=== PATIENT | female | born 1930 | race Caucasian/White ===

== ENCOUNTER 2017-06-17 00:08 | Inpatient (IN) | payer OTHER, MEDICAID ==
[~2017-06-17] VITALS: Ht 162.6 cm; Wt 54.4 kg
[2017-06-17] MEDS ORDERED: CRANBERRY450 M1 PO (00:36)
[2017-06-17] MEDS ORDERED: ARICEPT10 MG PO (00:36)
[2017-06-17] MEDS ORDERED: COLACE100 MG PO (00:37)
[2017-06-17] MEDS ORDERED: FERROUS SULFAT325 M2 PO (00:37)
[2017-06-17] MEDS ORDERED: FOSAMAX70 M1 PO (00:37)
[2017-06-17] MEDS ORDERED: LIPI10 PO (00:38)
[2017-06-17] MEDS ORDERED: LEVOTHYROXIN0.075 M2 PO (00:38)
[2017-06-17] MEDS ORDERED: GLIPIZIDE ER10 M1 PO (00:38)
[2017-06-17] MEDS ORDERED: NOR10 PO (00:39)
[2017-06-17] MEDS ORDERED: MEG40 PO (00:39)
[2017-06-17] MEDS ORDERED: ORAZINC 220220 MG PO (00:39)
[2017-06-17] MEDS ORDERED: DETROL LA4 MG PO (00:39)
[2017-06-17 01:19] LABS: BASOPHIL % 0.1 % (0-2); PLATELET COUNT 203 x10^3mcL (130-400)
[2017-06-17 01:23] LABS: RED CELL DISTRIBUTION WIDTH 16.4 % (11.5-14.5)
[2017-06-17 01:38] LABS: CALCIUM 8.9 mg/dL (8.5-10.1); CARBON DIOXIDE 21.1 mmol/L (21-32); CHLORIDE SERUM 108 mmol/L (98-107); CREATININE SERUM 1.8 mg/dL (0.6-1.0); GLUCOSE SERUM 251 mg/dL (74-106); POTASSIUM SERUM 4.3 mmol/L (3.5-5.1); SODIUM SERUM 139 mmol/L (136-145)
[2017-06-17 01:44] LABS: ALKALINE PHOSPHATASE 97 U/L (46-116); ALT/SGPT 21 U/L (14-59); AST/SGOT 20 U/L (15-37); BILIRUBIN TOTAL 0.41 mg/dL (0.20-1.00); TOTAL PROTEIN, SERUM 7.1 g/dL (6.4-8.2)
[2017-06-17 01:47] LABS: ALBUMIN 2.9 g/dL (3.4-5.0)
[2017-06-17 03:30] LABS: microscopic required? YES; urine erythrocyte NEGATIVE (NEGATIVE)
[2017-06-17 04:33] VITALS: BP 102/42
[2017-06-17 04:34] VITALS: BP 104/42
[2017-06-17 05:08] LABS: MAGNESIUM 2.2 mg/dL (1.8-2.4); PHOSPHOROUS 2.1 mg/dL (2.5-4.9)
[2017-06-17 05:14] LABS: T3 TOTAL 0.31 ng/mL
[2017-06-17 05:15] LABS: FREE T4 1.15 ng/dL (0.76-1.46); FREE THYROXINE INDEX 1.9 ug/dL (1.4-4.5); T4(THYROXINE) 5.1 ug/dL (4.7-13.3)
[2017-06-17 09:31] VITALS: BP 125/68
[2017-06-17 15:55] VITALS: BP 119/67
[2017-06-17 20:37] VITALS: BP 123/62
[2017-06-18 00:30] VITALS: BP 136/76
[2017-06-18 05:59] VITALS: BP 99/58
[2017-06-18 07:34] LABS: PLATELET COUNT 240 x10^3mcL (130-400)
[2017-06-18 07:37] LABS: RED CELL DISTRIBUTION WIDTH 17.3 % (11.5-14.5)
[2017-06-18 07:42] LABS: CALCIUM 8.1 mg/dL (8.5-10.1); CARBON DIOXIDE 17.6 mmol/L (21-32); CHLORIDE SERUM 112 mmol/L (98-107); CREATININE SERUM 1.7 mg/dL (0.6-1.0); GLUCOSE SERUM 275 mg/dL (74-106); PHOSPHOROUS 3.6 mg/dL (2.5-4.9); POTASSIUM SERUM 5.1 mmol/L (3.5-5.1); SODIUM SERUM 144 mmol/L (136-145)
[2017-06-18 09:22] VITALS: BP 102/75
[2017-06-18 10:33] LABS: BAND NEUTROPHIL 5 % (0-10); BASOPHIL 0 % (0-2); MONOCYTE 2 % (0-7); SEGMENTED NEUTROPHILS 89 % (37-75)
[2017-06-18 10:34] LABS: rbc morphology (normal/abnorm) ABNORMAL (NORMAL)
[2017-06-18 10:35] LABS: burr cell (echinocyte) 1+
[2017-06-18 12:44] VITALS: BP 111/57
[2017-06-18 17:48] VITALS: BP 98/57
[2017-06-18 22:07] VITALS: BP 101/55
[2017-06-19 06:20] VITALS: BP 96/48
[2017-06-19 08:46] VITALS: Ht 162.6 cm; Wt 54.4 kg
[2017-06-19 09:54] VITALS: BP 97/38
[2017-06-19 14:10] VITALS: BP 98/43
[2017-06-19 17:34] VITALS: BP 104/41
[2017-06-19 20:41] VITALS: BP 118/35
[2017-06-20 05:26] VITALS: BP 122/40
[2017-06-20 07:35] VITALS: BP 100/27
== END 2017-06-20 09:42 | disposition expired | DRG 177 ==
LOC: ED 00:08 → DU 02:33
PROVIDERS: Emergency Medicine; Family Medicine
PROC: 5A09457 Assistance with Respiratory Ventilation, 24-96 Consecutive Hours, Continuous Positive Airway Pressure (ICD-10-PCS; principal; 2017-06-18)
DX: J69.0 Pneumonitis due to inhalation of food and vomit (principal); E43 Unspecified severe protein-calorie malnutrition; J96.00 Acute respiratory failure, unspecified whether with hypoxia or hypercapnia; N17.0 Acute kidney failure with tubular necrosis; E41 Nutritional marasmus; J44.1 Chronic obstructive pulmonary disease with (acute) exacerbation; Z68.1 Body mass index [BMI] 19.9 or less, adult; I10 Essential (primary) hypertension; E11.9 Type 2 diabetes mellitus without complications; E03.9 Hypothyroidism, unspecified; M81.0 Age-related osteoporosis without current pathological fracture; E78.5 Hyperlipidemia, unspecified; F03.90 Unspecified dementia, unspecified severity, without behavioral disturbance, psychotic disturbance, mood disturbance, and anxiety; Z91.81 History of falling; N32.81 Overactive bladder; I46.9 Cardiac arrest, cause unspecified; E83.39 Other disorders of phosphorus metabolism; Z66 Do not resuscitate; Z51.5 Encounter for palliative care
CPT/HCPCS: 36600; 82962; 83880; 84439; 87804; J1644; J2060; J2270; J2543; J2920; J2930; J3370; J3475; J3490; J7030; J7040; J7042; J7050; J7620; Q0092